=== PATIENT | female | born 1945 | race Native Hawaiian/Other Pacific Islander ===

== ENCOUNTER 2016-12-16 08:05 | Outpatient (CLI) | payer OTHER, BC ==
[2016-12-16 08:17] LABS: PLATELET COUNT 218 K/uL (152-353)
[2016-12-16 08:41] LABS: POTASSIUM 3.9 mmol/L (3.6-5.2); SODIUM 136 mmol/L (136-145)
== END 2016-12-16 19:26 | disposition home or self-care (01) ==
LOC: LABW 08:05
PROVIDERS: Internal Medicine
DX: E03.8 Other specified hypothyroidism (principal); I10 Essential (primary) hypertension; Z85.3 Personal history of malignant neoplasm of breast; R53.81 Other malaise
CPT/HCPCS: 36415; 80053; 80061; 84439; 84443; 85027; 86140

== ENCOUNTER 2017-01-22 11:15 | Outpatient (CLI) | payer OTHER, BC | END 2017-01-22 11:36 | disposition short-term general hospital (02) | LOC: AMB 11:15 | DX: R10.32 Left lower quadrant pain (principal); W18.39XA Other fall on same level, initial encounter; Y92.22 Religious institution as the place of occurrence of the external cause | CPT/HCPCS: A0425; A0427 ==

== ENCOUNTER 2018-01-22 07:18 | Outpatient (CLI) | payer OTHER, BC ==
[2018-01-22 07:56] LABS: PLATELET COUNT 320 K/uL (152-353)
[2018-01-22 08:18] LABS: POTASSIUM 4.2 mmol/L (3.6-5.2)
== END 2018-01-22 21:46 | disposition home or self-care (01) ==
LOC: LABW 07:18
PROVIDERS: Internal Medicine
DX: I10 Essential (primary) hypertension (principal); E03.8 Other specified hypothyroidism; Z79.899 Other long term (current) drug therapy; Z51.81 Encounter for therapeutic drug level monitoring
CPT/HCPCS: 36415; 80053; 80061; 83036; 84443; 85027

== ENCOUNTER 2018-05-31 13:22 | Outpatient (CLI) | payer OTHER, BC | END 2018-05-31 13:41 | disposition short-term general hospital (02) | LOC: AMB 13:22 | DX: S70.01XA Contusion of right hip, initial encounter (principal); W10.8XXA Fall (on) (from) other stairs and steps, initial encounter; Y93.89 Activity, other specified; Y92.010 Kitchen of single-family (private) house as the place of occurrence of the external cause | CPT/HCPCS: A0425; A0427 ==

== ENCOUNTER 2019-01-23 07:59 | Outpatient (CLI) | payer OTHER, BC ==
[2019-01-23 08:21] LABS: PLATELET COUNT 243 K/uL (152-353)
== END 2019-01-23 20:12 | disposition home or self-care (01) ==
LOC: LABW 07:59
PROVIDERS: Internal Medicine
DX: Z00.00 Encounter for general adult medical examination without abnormal findings (principal); R53.81 Other malaise; E03.9 Hypothyroidism, unspecified; I10 Essential (primary) hypertension; Z79.899 Other long term (current) drug therapy
CPT/HCPCS: 36415; 80053; 80061; 83036; 84443; 85027

== ENCOUNTER 2021-08-31 13:48 | Outpatient (CLI) | payer BC | END 2021-08-31 21:21 | disposition home or self-care (01) | LOC: RAD 13:48 | PROVIDERS: ATTEND Internal Medicine | DX: Z13.820 Encounter for screening for osteoporosis (principal); N95.8 Other specified menopausal and perimenopausal disorders ==

== ENCOUNTER 2023-02-27 08:40 | Outpatient (CLI) | payer BC | END 2023-02-27 19:37 | disposition home or self-care (01) | LOC: RESP 08:40 | PROVIDERS: ATTEND Internal Medicine | DX: R07.89 Other chest pain (principal); R00.2 Palpitations; R55 Syncope and collapse; R53.1 Weakness | CPT/HCPCS: 93225 ==